=== PATIENT | female | born 2000 | race Caucasian/White ===

== ENCOUNTER 2022-11-26 20:46 | Emergency (ER) | payer OTHER, SELFPAY ==
[2022-11-26 20:55] VITALS: BP 141/89; PULSE 84; RESP 16; TEMP 36.3; O2SAT 97; BMI 31.9
--- NOTE | 2022-11-26 21:16 | ED_ITS ---
HPI - Female Genitourinary General Time Seen by Provider: 21:16 Date Seen: 11/26/22 Chief complaint: Vaginal Bleeding Stated complaint: lightheaded, chills Time Seen by Provider: 11/26/22 21:16 Source: patient and RN notes reviewed Mode of arrival: ambulatory Limitations: no limitations History of Present Illness HPI Narrative: Patient is a very pleasant 21-year-old [employer] student from the [employer] [facility], never sexually active, not on control, who comes to the emergency room with vaginal clotting. Patient notes the onset of her normal. On November 20. It ended on November 24 and this is her normal schedule approximately 4 days. However, today she started passing large clots. She notes that she has passed small clots in the past but never this. She has not had this occur where she actually has had bleeding after her. Stop. She denies any sexual activity in her history and is not currently on any control. She denies problems with her thyroid recent weight loss or read weight gain. She has not had fever but states she somewhat chilled and is somewhat lightheaded. Related Data Home Medications Medication Instructions Recorded Confirmed buspirone 10 mg tablet 10 mg PO BID 11/26/22 11/26/22 fluoxetine 40 mg capsule 40 mg PO DAILY 11/26/22 11/26/22 rizatriptan 10 mg disintegrating mg PO 11/26/22 tablet topiramate 50 mg tablet 100 mg PO QPM 11/26/22 11/26/22 Allergies Allergy/AdvReac Type Severity Reaction Status Date / Time strawberry Allergy Severe Verified 11/26/22 20:54 tree nut Allergy Severe Verified 11/26/22 20:54 peanuts Allergy Severe Uncoded 11/26/22 20:54 Review of Systems Status of ROS: Reports: 10 or more systems reviewed and unremarkable except as noted in History and below Const: Reports: chills; Denies: fever Eyes: Denies: change in vision ENMT: Denies: throat pain, throat swelling or hoarseness Cardio: Denies: shortness of breath with exertion Resp: Denies: shortness of breath or cough GI: Reports: abdominal pain (Suprapubic discomfort.); Denies: nausea, vomiting or diarrhea : Denies: painful urination, urinary frequency or urinary urgency Musculo: Denies: back pain Neuro: Denies: headache Allergy/Immuno: Denies: throat swelling PFSH PFSH Social History Smoking Status: Never smoker Do you use any of these nicotine containing products: None How often do you have a drink containing alcohol: never AUDIT-C Alcohol total score: 0 Non-prescribed substance use: denies use service: No Exam Narrative: Exam Narrative: Patient is alert and oriented. Nontoxic in appearance. Somewhat quiet. Eyes are clear. Neck is supple. Heart with regular rate and rhythm. Lungs are clear to auscultation. Abdomen is with tenderness in the suprapubic area. Pelvic exam is deferred at this time as she has not had speculum exam in the [facility] and she will be going for ultrasound. Const: Vital Signs, click to edit/add: Vital Signs - 24 hr 11/26/22 20:55 Temperature 97.4 F L Pulse Rate [Right Pulse Oximeter] 84 Respiratory Rate 16 Blood Pressure [Ri ght Upper Arm] 141/89 H Pulse Oximetry 97 Oxygen Delivery Me thod Room Air Documenting provider has reviewed patient's vital signs: yes Course Course Hospital Course: Will check a CBC, basic, INR and do pelvic ultrasound. Patient has not had speculum exam in the past and I am electing not to do it at this time given her reassuring vital signs. She has not been sexually active in the past. Reevaluation(s) Reevaluation #1: Basic panel within normal limits. CBC and INR pending as well as pelvic ultrasound results. Vital Signs Vital signs: Initial Vital Signs Temperature 97.4 F L 11/26/22 20:55 Temperature Source Temporal Artery Scan 11/26/22 20:55 Pulse Rate 84 11/26/22 20:55 Pulse Rhythm 11/26/22 20:55 Respiratory Rate 16 11/26/22 20:55 Blood Pressure 141/89 H 11/26/22 20:55 Blood Pressure Mean 106 11/26/22 20:55 Blood Pressure Position Sitting 11/26/22 20:55 Pulse Oximetry 97 11/26/22 20:55 Oxygen Delivery Method 11/26/22 20:55 Vital Signs Temperature 97.4 F L 11/26/22 20:55 Pulse Rate 84 11/26/22 20:55 Respiratory Rate 16 11/26/22 20:55 Blood Pressure 141/89 H 11/26/22 20:55 Pulse Oximetry 97 11/26/22 20:55 Oxygen Delivery Method 11/26/22 20:55 Temperature 97.4 F L 11/26/22 20:55 Pulse Rate 84 11/26/22 20:55 Respiratory Rate 16 11/26/22 20:55 Blood Pressure 141/89 H 11/26/22 20:55 Pulse Oximetry 97 11/26/22 20:55 Oxygen Delivery Method 11/26/22 20:55 MDM - Female Genitourinary MDM Narrative Medical decision making narrative: 1. Vaginal bleeding-awaiting hemoglobin as well as results of pelvic ultrasound. 2. Disposition-signed out to my partner Dr. Koo for final disposition. Medical Records Attestation: I reviewed the patient's medical records. Lab Data Attestation: I reviewed the patient's lab results. Labs: Lab Results 11/26/22 Range/Units 21:15 Sodium 137 (135-149) mmol/L Potassium 3.9 (3.6-5.1) mmol/L Chloride 103 (96-114) mmol/L Carbon Dioxide 27 (20-32) mmol/L BUN 5 (5-24) mg/dL Creatinine 0.6 (0.5-1.5) mg/dL Estimated Creat Clear 122.69 Estimated GFR 131 ml/min Glucose 105 (60-115) mg/dL Calcium 9.1 (8.4-10.6) mg/dL Imaging Data Pelvic ultrasound: Attestation: I have reviewed the pertinent imaging results. Discharge Plan Discharge Prescriptions: No Action rizatriptan 10 mg tablet,disintegrating PO buspirone 10 mg tablet 10 mg PO BID topiramate 50 mg tablet 100 mg PO QPM fluoxetine 40 mg capsule 40 mg PO DAILY Follow Up/Referrals: Provider,Not a Local [Primary Care Provider] -
--- NOTE | 2022-11-26 21:29 | CRLHL7_ITS ---
For Patients: As a result of the Century Cures Act, medical imaging exams and procedure reports are released immediately into your electronic medical record. You may view this report before your referring provider. If you have questions, please contact your health care provider. INDICATION: Irregular bleeding with clots. Pelvic pain, Vaginal bleeding TECHNIQUE: Ultrasound pelvis transvaginal. Endovaginal imaging was performed to better visualize the endometrium and ovaries. Real-time zambrano scale sonographic images with spectral and color Doppler imaging of the ovaries were obtained. COMPARISON: None FINDINGS: Uterus: 7.5 x 4 x 3.2 cm. Normal echotexture of the myometrium noted with no masses are seen. Endometrium: 18 mm. The endometrium is thickened and heterogeneous in appearance. Multiple nabothian cysts are present measuring to 9 mm. Right ovary: 3.2 x 2 x 2 cm. The right ovary is normal in appearance and echotexture. Arterial blood flow seen within the right ovary. Left ovary: 4 x 2.6 x 3 cm. There is a cyst present in the left ovary measuring 3.3 x 2.4 x 2 cm. Venous blood flow seen within the left ovary. Cul-de-sac: No significant ascites noted. IMPRESSIONS: 1. There is a cyst present in the left ovary measuring 3.3 x 2.4 x 2 cm. 2. The endometrium is thickened and heterogeneous in appearance. This may be due to the presence of blood products. If the patient`s status is uncertain, correlation with beta HCG is recommended. Follow-up ultrasound in 1 month is recommended to document resolution. Dictated by Parag Collins MD @ 11/26/2022 10:53:23 PM Dictated by: Parag Collins MD @ 11/26/2022 22:58:33 (Electronically Signed)
[2022-11-26 22:24] LABS: INR 0.89 (0.91-1.10); Prothrombin Time 12.5 Seconds
[2022-11-26 22:32] LABS: Chloride* 103 mmol/L (96-114); Potassium* 3.9 mmol/L (3.6-5.1); Sodium* 137 mmol/L (135-149)
[2022-11-26 22:34] LABS: Creatinine* 0.6 mg/dL (0.5-1.5); Est. Creatinine Clearance* 122.69; Estimated Glomerular Filt Rate 131 ml/min
[2022-11-26 22:35] LABS: Blood Urea Nitrogen* 5 mg/dL (5-24); Calcium* 9.1 mg/dL (8.4-10.6); Carbon Dioxide* 27 mmol/L (20-32); Glucose* 105 mg/dL (60-115)
[2022-11-26] MEDS: 0.9 % SODIUM CHLORIDE 1000 ml 1,000 ML IV (22:40)
[2022-11-26 23:17] LABS: Basophils Absolute Auto 0.03 K/uL (0.00-0.30); Basophils Percent Auto 0.3 % (0.0-3.0); Eosinophils Absolute Auto 0.32 K/uL (0.00-0.50); Eosinophils Percent Auto 3.6 % (0.0-7.0); Hematocrit 33.1 % (33.0-51.0); Hemoglobin* 10.2 gm/dL (12.0-16.0); Immature Granulocytes Abs Auto 0.01 K/uL (0.00-0.30); Immature Granulocytes Pct Auto 0.1 %; Lymphocytes Absolute Auto 1.86 K/uL (0.90-2.90); Lymphocytes Percent Auto 20.7 % (20-44); Mean Corpuscular HGB Conc 31 gm/dL (32-36); Mean Corpuscular Hemoglobin 18 pg (26-34); Mean Corpuscular Volume 58 fL (80-100); Monocytes Percent Auto 8.6 % (0.0-11.0); Neutrophils Absolute Auto 6.01 K/uL (1.7-7.0); Neutrophils Percent Auto 66.7 % (42.0-72.0); Platelet Count* 407 K/uL (140-440); RDW Coefficient of Variation % 19.1 % (11.5-15.5); Red Blood Count 5.69 m/uL (4.00-5.20)
[2022-11-26 23:18] LABS: Slide Review Reflex No
[2022-11-27] VITALS: O2SAT 98
[2022-11-27 00:22] LABS: Basophils Absolute Auto 0.04 K/uL (0.00-0.30); Basophils Percent Auto 0.5 % (0.0-3.0); Eosinophils Absolute Auto 0.34 K/uL (0.00-0.50); Eosinophils Percent Auto 4.2 % (0.0-7.0); Hematocrit 32.3 % (33.0-51.0); Hemoglobin* 9.9 gm/dL (12.0-16.0); Immature Granulocytes Abs Auto 0.01 K/uL (0.00-0.30); Immature Granulocytes Pct Auto 0.1 %; Lymphocytes Absolute Auto 1.87 K/uL (0.90-2.90); Mean Corpuscular HGB Conc 31 gm/dL (32-36); Mean Corpuscular Hemoglobin 18 pg (26-34); Mean Corpuscular Volume 58 fL (80-100); Neutrophils Absolute Auto 5.23 K/uL (1.7-7.0); Neutrophils Percent Auto 64.2 % (42.0-72.0); Platelet Count* 383 K/uL (140-440); Red Blood Count 5.57 m/uL (4.00-5.20); White Blood Count* 8.14 K/uL (4.50-11.00)
[2022-11-27 00:25] LABS: Slide Review Reflex No
[2022-11-27 00:44] LABS: Appearance Urine Slightly Cloudy (Clear); Bilirubin Urine Negative (Negative); Blood Urine 3+ (Negative); Color Urine Yellow (Yellow); Glucose Urine Negative (Negative); Ketones Urine Negative (Negative); Leukocyte Esterase Urine Negative (Negative); Nitrite Urine Negative (Negative); Protein Urine Negative (Negative); Specific Gravity Urine 1.015 (1.000-1.030); Urobilinogen Urine 0.2 (0.2-1.0); pH Urine 7.5 (5.0-8.5)
[2022-11-27 00:58] LABS: Bacteria Urine Few; Squamous Epithelial Cell Urine Few (None-Few)
[2022-11-27 00:59] LABS: HCG Qualitative* Negative (Negative)
[2022-11-27] MEDS: MEDROXYPROGESTERONE 5 MG TABLET 20 MG PO (01:40)
[2022-11-27] MEDS: ONDANSETRON ODT 4 MG TAB PO (01:40)
[2022-11-27 01:41] VITALS: BP 135/78; PULSE 74; RESP 16; TEMP 36.7; O2SAT 97
[2022-11-27 01:50] VITALS: BP 135/78; PULSE 74; RESP 16; TEMP 36.7
== END 2022-11-27 01:50 | disposition home or self-care (01) ==
PROVIDERS: Family Medicine; Emergency Provider Family Medicine
DX: N93.9 Abnormal uterine and vaginal bleeding, unspecified (principal)
CPT/HCPCS: 36415; 76830; 80048; 81001; 84703; 85025; 85610; 87086; 93976; 94761; 99284; A9270; J7030